=== PATIENT | male | born 1950 | race Two or more races ===

== ENCOUNTER 2022-06-03 20:10 | Inpatient (IN) | payer MEDICARE, BC ==
[~2022-06-03 20:10] MED LIST: Iopamidol 300 61% 100 ML VIAL FS ONE
[2022-06-03 21:12] LABS: #Basophils 0.1 10x3/uL (0.0-0.2); #Eosinphils 0.1 10x3/uL (0.0-0.5); #Neutrophils 17.2 10x3/uL (1.5-8.4); %Basophils 0.3 % (0.0-2.0); %Eosinophils 0.4 % (0.0-6.0); %Lymphocytes 5.1 % (18.0-47.0); %Monocytes 4.9 % (0.0-10.0); %Neutrophils 88.6 % (40.0-75.0); Hemoglobin 11.8 g/dL (13.5-17.5); Mean Corpuscular HGB CONC 31.9 g/dL (32.0-36.0); Mean Corpuscular Hemoglobin 23.9 pg (27.0-33.0); Mean Corpuscular Volume 74.9 fl (81.2-95.1); Mean Platelet Volume 11.2 fl (7.4-10.4); Platelet Count 350 10x3/uL (150-450); RBC Distribution Width 20.8 % (11.5-14.5); Red Blood Cell (RBC) Count 4.94 10x6/uL (4.32-5.72); White Blood Cell (WBC) Count 19.4 10x3/uL (3.5-10.5)
[2022-06-03 21:22] LABS: ALT (SGPT) 46 U/L (8-55); AST (SGOT) 26 U/L (5-34); Albumin 3.4 g/dL (3.4-4.8); Alkaline Phosphatase 91 U/L (40-110); Anion Gap 15 mmol/L (10-20); BUN (Urea Nitrogen) 16 mg/dL (8.4-25.7); Bilirubin, Total 0.8 mg/dL (0.2-1.2); Calc. Creatinine Clearance 0 mL/min (70-130); Calcium 8.5 mg/dL (7.8-10.44); Carbon Dioxide 22 mmol/L (23-31); Chloride 100 mmol/L (98-107); Estimated GFR 96; Globulin 2.9 g/dL (2.4-3.5); Glucose 134 mg/dL (83-110); Potassium 4.2 mmol/L (3.5-5.1); Protein, Total 6.3 g/dL (5.8-8.1); Sodium 133 mmol/L (136-145)
[2022-06-03] MEDS ORDERED: cefTRIAXone\\ROCEPHIN 2 GM VIAL ONE (21:31)
[2022-06-03] MEDS ORDERED: Ibuprofen 200 MG TAB ONE (21:53)
[2022-06-03 21:54] LABS: SARS-CoV-2 NAA Rapid Test Not Detected (NotDetected)
[2022-06-03] MEDS ORDERED: Azithromycin 500 MG VIAL ONE (22:20)
[2022-06-03 22:24] LABS: Bilirubin Neg (Negative); Blood, Urine 10 (Negative); Clarity Clear (Clear); Glucose, Urine (Dipstick) Normal (Negative); Ketone, Urine Negative (Negative); Leukocyte Negative (Negative); Nitrite Negative (Negative); Protein, Urine (Dipstick) Negative (Neg-Trace); Urobilinogen Normal mg/dL (Less than 2)
[2022-06-03 22:29] LABS: RBC/HPF 0-3 HPF (0-3); Squamous Epithelial 0-3 HPF (0-3); WBC/HPF None Seen HPF (0-3)
[2022-06-03] MEDS ORDERED: Communication Order-Pharmacy FS ONE (23:37)
[2022-06-03] MEDS ORDERED: Acetaminophen 325 MG TAB PO PRN (23:42)
[2022-06-03] MEDS ORDERED: Cefepime 2 GM VIAL ONE (23:44)
[2022-06-03] MEDS ORDERED: Lactated Ringer's 1,000 ML IV SCH (23:45)
[2022-06-04] MEDS ORDERED: VANCOMYCIN 2 GRAM/400 ML BAG 2 GM in Premix Bag 1 BAG IVPB SCH (00:30)
[2022-06-04 01:08] VITALS: BMI 26.6
[2022-06-04] MEDS: Lactated Ringer's 1,000 ML IV SCH ×4 (01:30→23:00)
[2022-06-04 04:50] LABS: #Eosinphils 0.1 10x3/uL (0.0-0.5); #Monocytes 1.2 10x3/uL (0.0-1.1); #Neutrophils 16.5 10x3/uL (1.5-8.4); %Basophils 0.2 % (0.0-2.0); %Eosinophils 0.7 % (0.0-6.0); %Lymphocytes 7.5 % (18.0-47.0); %Neutrophils 84.6 % (40.0-75.0); Hemoglobin 12.6 g/dL (13.5-17.5); Mean Corpuscular Volume 77.4 fl (81.2-95.1); Mean Platelet Volume 11.3 fl (7.4-10.4); Platelet Count 316 10x3/uL (150-450); RBC Distribution Width 21.8 % (11.5-14.5); Red Blood Cell (RBC) Count 5.26 10x6/uL (4.32-5.72); White Blood Cell (WBC) Count 19.5 10x3/uL (3.5-10.5)
[2022-06-04 04:51] LABS: Anion Gap 13 mmol/L (10-20); BUN (Urea Nitrogen) 12 mg/dL (8.4-25.7); Calc. Creatinine Clearance 104 mL/min (70-130); Calcium 8.7 mg/dL (7.8-10.44); Carbon Dioxide 22 mmol/L (23-31); Chloride 107 mmol/L (98-107); Estimated GFR 98; Glucose 132 mg/dL (83-110); Potassium 3.7 mmol/L (3.5-5.1); Sodium 138 mmol/L (136-145)
[2022-06-04] MEDS: Cefepime 2 GM in Sodium Chloride 0.9% 100 ML IVPB SCH ×3 (05:23→22:05)
[2022-06-04] MEDS: Aspirin 81 mg Enteric Coated Tablet PO SCH (08:44)
[2022-06-04] MEDS: Azithromycin 500 MG in Sodium Chloride 0.9% 250 ML 250 ML IVPB SCH (11:48)
[2022-06-04] MEDS: Vancomycin HCl 1 GM in Sodium Chloride 0.9% 250 ML 250 ML IVPB SCH (14:14)
[2022-06-05] MEDS: Vancomycin HCl 1 GM in Sodium Chloride 0.9% 250 ML 250 ML IVPB SCH (00:26)
[2022-06-05 05:20] LABS: Troponin I 0.018 ng/mL (< 0.028)
[2022-06-05] MEDS: Cefepime 2 GM in Sodium Chloride 0.9% 100 ML IVPB SCH ×3 (05:39→21:47)
[2022-06-05] MEDS: Lactated Ringer's 1,000 ML IV SCH ×2 (09:47→18:32)
[2022-06-05] MEDS: Aspirin 81 mg Enteric Coated Tablet PO SCH (09:47)
[2022-06-05] MEDS: Azithromycin 500 MG in Sodium Chloride 0.9% 250 ML 250 ML IVPB SCH (10:04)
[2022-06-05] MEDS: VANCOMYCIN 1.25 GM/250 ML BAG 1.25 GM in Premix Bag 1 BAG IVPB SCH (17:12)
[2022-06-05] MEDS ORDERED: Ondansetron ODT 4 MG TAB PO PRN (17:55)
[2022-06-05] MEDS ORDERED: Sodium Chloride 0.65% Nasal 44 ML BOT EA NARE PRN (17:55)
[2022-06-05] MEDS ORDERED: Acetaminophen 500 MG TAB PO PRN ×2 (17:55)
[2022-06-05] MEDS ORDERED: diphenhydrAMINE 25 MG CAP PO PRN (17:55)
[2022-06-05] MEDS ORDERED: Moisturizing Cream (Eucerin) 113 GM JAR TOP PRN (17:55)
[2022-06-05] MEDS ORDERED: Calcium Carbonate 500 MG ChewTAB PO PRN (17:55)
[2022-06-05] MEDS ORDERED: Ondansetron PF 4 MG/2 ML Vial IVP PRN (17:55)
[2022-06-05] MEDS ORDERED: Benzonatate 100 MG CAP PO PRN (17:55)
[2022-06-05] MEDS ORDERED: Artificial Tear Sol 15 ML BOT EA EYE PRN (17:55)
[2022-06-05] MEDS ORDERED: Acetaminophen 650 MG Suppository PR PRN (17:55)
[2022-06-05] MEDS ORDERED: Cepastat Lozenges 1 LOZ PO PRN (17:55)
[2022-06-05] MEDS ORDERED: Lactated Ringer's 1,000 ML IV SCH (18:04)
[2022-06-06] MEDS: VANCOMYCIN 1.25 GM/250 ML BAG 1.25 GM in Premix Bag 1 BAG IVPB SCH ×2 (02:33→18:15)
[2022-06-06] MEDS: Cefepime 2 GM in Sodium Chloride 0.9% 100 ML IVPB SCH ×3 (06:09→21:19)
[2022-06-06 06:33] LABS: #Eosinphils 0.3 10x3/uL (0.0-0.5); #Monocytes 1.1 10x3/uL (0.0-1.1); #Neutrophils 5.9 10x3/uL (1.5-8.4); %Basophils 0.5 % (0.0-2.0); %Eosinophils 3.1 % (0.0-6.0); %Lymphocytes 15.9 % (18.0-47.0); %Monocytes 12.1 % (0.0-10.0); %Neutrophils 68.1 % (40.0-75.0); Hemoglobin 12.1 g/dL (13.5-17.5); Mean Corpuscular HGB CONC 31.8 g/dL (32.0-36.0); Mean Corpuscular Volume 75.6 fl (81.2-95.1); Mean Platelet Volume 11.8 fl (7.4-10.4); Platelet Count 340 10x3/uL (150-450); RBC Distribution Width 20.7 % (11.5-14.5); Red Blood Cell (RBC) Count 5.04 10x6/uL (4.32-5.72); White Blood Cell (WBC) Count 8.7 10x3/uL (3.5-10.5)
[2022-06-06 06:47] LABS: ALT (SGPT) 25 U/L (8-55); AST (SGOT) 19 U/L (5-34); Albumin 3.1 g/dL (3.4-4.8); Alkaline Phosphatase 90 U/L (40-110); Anion Gap 17 mmol/L (10-20); BUN (Urea Nitrogen) 10 mg/dL (8.4-25.7); Bilirubin, Total 0.7 mg/dL (0.2-1.2); Calc. Creatinine Clearance 101 mL/min (70-130); Calcium 9.5 mg/dL (7.8-10.44); Carbon Dioxide 24 mmol/L (23-31); Chloride 104 mmol/L (98-107); Estimated GFR 97; Globulin 3.4 g/dL (2.4-3.5); Glucose 105 mg/dL (83-110); Potassium 4.5 mmol/L (3.5-5.1); Protein, Total 6.5 g/dL (5.8-8.1); Sodium 140 mmol/L (136-145)
[2022-06-06 06:55] LABS: CRP (Inflammatory) 17.42 mg/dL (= or < 0.5)
[2022-06-06] MEDS: Azithromycin 500 MG in Sodium Chloride 0.9% 250 ML 250 ML IVPB SCH (10:09)
[2022-06-06] MEDS: Aspirin 81 mg Enteric Coated Tablet PO SCH (10:10)
[2022-06-06 11:04] LABS: HIV (1/2) Antibody/Antigen Non-Reactive (NonReactive); HIV 1/2 INDEX 0.06 S/CO (<1.00)
[2022-06-06] MEDS ORDERED: Iopamidol 300 61% 100 ML VIAL FS ONE (11:04)
[2022-06-07 02:31] LABS: Vancomycin, Trough 20.4 ug/mL
[2022-06-07 02:36] LABS: #Eosinphils 0.2 10x3/uL (0.0-0.5); #Neutrophils 5.9 10x3/uL (1.5-8.4); %Basophils 0.5 % (0.0-2.0); %Lymphocytes 10.4 % (18.0-47.0); %Monocytes 12.7 % (0.0-10.0); %Neutrophils 73.2 % (40.0-75.0); Hemoglobin 11.9 g/dL (13.5-17.5); Mean Corpuscular HGB CONC 32.2 g/dL (32.0-36.0); Mean Corpuscular Hemoglobin 23.9 pg (27.0-33.0); Mean Corpuscular Volume 74.3 fl (81.2-95.1); Mean Platelet Volume 10.8 fl (7.4-10.4); Platelet Count 353 10x3/uL (150-450); RBC Distribution Width 20.6 % (11.5-14.5); Red Blood Cell (RBC) Count 4.98 10x6/uL (4.32-5.72); White Blood Cell (WBC) Count 8.1 10x3/uL (3.5-10.5)
[2022-06-07 02:53] LABS: ALT (SGPT) 22 U/L (8-55); AST (SGOT) 13 U/L (5-34); Albumin 3.1 g/dL (3.4-4.8); Alkaline Phosphatase 83 U/L (40-110); Anion Gap 14 mmol/L (10-20); BUN (Urea Nitrogen) 9 mg/dL (8.4-25.7); Bilirubin, Total 0.5 mg/dL (0.2-1.2); Calc. Creatinine Clearance 110 mL/min (70-130); Calcium 9.3 mg/dL (7.8-10.44); Carbon Dioxide 24 mmol/L (23-31); Chloride 103 mmol/L (98-107); Estimated GFR 100; Globulin 3.3 g/dL (2.4-3.5); Glucose 109 mg/dL (83-110); Potassium 3.9 mmol/L (3.5-5.1); Protein, Total 6.4 g/dL (5.8-8.1); Sodium 137 mmol/L (136-145)
[2022-06-07 03:06] LABS: HIV (1/2) Antibody/Antigen Non-Reactive (NonReactive); HIV 1/2 INDEX 0.16 S/CO (<1.00)
[2022-06-07] MEDS: VANCOMYCIN 1.25 GM/250 ML BAG 1.25 GM in Premix Bag 1 BAG IVPB SCH (03:18)
[2022-06-07] MEDS: Cefepime 2 GM in Sodium Chloride 0.9% 100 ML IVPB SCH (05:56)
[2022-06-07] MEDS: Aspirin 81 mg Enteric Coated Tablet PO SCH (09:23)
[2022-06-07 13:29] VITALS: BP 128/66; TEMP 98.6
[2022-06-11 15:14] LABS: QuantiFERON-TB Gold Plus Negative (Negative)
== END 2022-06-07 15:00 | disposition home or self-care (01) | DRG 871 ==
LOC: CSHERS 20:10 → CSHTELE 23:42
PROVIDERS: ADMIT Family Medicine; ATTEND Family Medicine
DX: A41.9 Sepsis, unspecified organism (principal); E43 Unspecified severe protein-calorie malnutrition; E11.9 Type 2 diabetes mellitus without complications; I10 Essential (primary) hypertension; N40.0 Benign prostatic hyperplasia without lower urinary tract symptoms; E78.5 Hyperlipidemia, unspecified; J45.909 Unspecified asthma, uncomplicated; F17.210 Nicotine dependence, cigarettes, uncomplicated; R07.9 Chest pain, unspecified; C32.0 Malignant neoplasm of glottis; Z20.822 Contact with and (suspected) exposure to COVID-19; R10.9 Unspecified abdominal pain; R53.1 Weakness; R59.0 Localized enlarged lymph nodes; Z83.3 Family history of diabetes mellitus; Z98.890 Other specified postprocedural states; Z83.79 Family history of other diseases of the digestive system; Z68.26 Body mass index [BMI] 26.0-26.9, adult
CPT/HCPCS: 36415; 36416; 71045; 71260; 74177; 76705; 80048; 80053; 80202; 81003; 81015; 83605; 83735; 83880; 84145; 84484; 85025; 85652; 86140; 86480; 87040; 87385; 87389; 87449; 93005; 96361; 96365; 96367; J0456; J0692; J0696; J1650; J3370; J3490; J7050; J7120; Q9967

== ENCOUNTER 2023-02-20 16:03 | Emergency (ER) | payer MEDICARE, BC ==
[2023-02-20 17:08] LABS: ALT (SGPT) 65 U/L (8-55); AST (SGOT) 20 U/L (5-34); Albumin 3.8 g/dL (3.4-4.8); Alkaline Phosphatase 228 U/L (40-110); Anion Gap 16 mmol/L (10-20); BUN (Urea Nitrogen) 18 mg/dL (8.4-25.7); Bilirubin, Total 0.4 mg/dL (0.2-1.2); Calc. Creatinine Clearance 0 mL/min (70-130); Calcium 9.5 mg/dL (7.8-10.44); Carbon Dioxide 28 mmol/L (23-31); Chloride 100 mmol/L (98-107); Estimated GFR 95; Globulin 3.8 g/dL (2.4-3.5); Glucose 193 mg/dL (83-110); Lipase 12 U/L (8-78); Magnesium 2.2 mg/dL (1.6-2.6); Potassium 4.2 mmol/L (3.5-5.1); Protein, Total 7.6 g/dL (5.8-8.1); Sodium 140 mmol/L (136-145)
[2023-02-20] MEDS ORDERED: Ondansetron PF 4 MG/2 ML Vial ONE (17:09)
[2023-02-20 17:11] LABS: Bilirubin Neg (Negative); Blood, Urine 10 (Negative); Clarity Clear (Clear); Glucose, Urine (Dipstick) Normal (Negative); Ketone, Urine Negative (Negative); Leukocyte Negative (Negative); Nitrite Negative (Negative); Protein, Urine (Dipstick) 30 mg/dl (Neg-Trace); Urobilinogen Normal mg/dL (Less than 2); pH, Urine 6.5 (5.0-9.0)
[2023-02-20 17:14] LABS: Troponin I 0.038 ng/mL (< 0.028)
[2023-02-20 17:27] LABS: #Basophils 0.1 10x3/uL (0.0-0.2); #Eosinphils 0.1 10x3/uL (0.0-0.5); #Monocytes 0.6 10x3/uL (0.0-1.1); #Neutrophils 8.9 10x3/uL (1.5-8.4); %Basophils 0.5 % (0.0-2.0); %Eosinophils 0.6 % (0.0-6.0); %Lymphocytes 12.4 % (18.0-47.0); %Monocytes 5.7 % (0.0-10.0); %Neutrophils 80.3 % (40.0-75.0); Hematocrit 41.7 % (38.8-50.0); Hemoglobin 13.3 g/dL (13.5-17.5); Mean Corpuscular HGB CONC 31.9 g/dL (32.0-36.0); Mean Corpuscular Hemoglobin 25.9 pg (27.0-33.0); Mean Corpuscular Volume 81.1 fl (81.2-95.1); Mean Platelet Volume 10.6 fl (7.4-10.4); Platelet Count 553 10x3/uL (150-450); RBC Distribution Width 16.5 % (11.5-14.5); Red Blood Cell (RBC) Count 5.14 10x6/uL (4.32-5.72); White Blood Cell (WBC) Count 11.1 10x3/uL (3.5-10.5)
[2023-02-20 17:29] LABS: CAUTI Indications for Culture Dysuria,urgency,freq; RBC/HPF 0-3 HPF (0-3); Squamous Epithelial 0-3 HPF (0-3); WBC/HPF 0-3 HPF (0-3)
[2023-02-20 17:30] LABS: Bacteria/HPF 1+ HPF (None Seen); Mucous/LPF 2+ LPF (<2+); Urine Culture Reflex No No
[2023-02-20 17:44] LABS: SARS-CoV-2 NAA Rapid Test Not Detected (NotDetected)
== END 2023-02-20 19:05 | disposition home or self-care (01) ==
LOC: CSHERS 16:03
DX: R11.10 Vomiting, unspecified (principal); M79.10 Myalgia, unspecified site; I25.10 Atherosclerotic heart disease of native coronary artery without angina pectoris; I10 Essential (primary) hypertension; E11.9 Type 2 diabetes mellitus without complications; Z20.822 Contact with and (suspected) exposure to COVID-19
CPT/HCPCS: 0240U; 71045; 80053; 81001; 83690; 83735; 84484 ×2; 85025; 93005; 36415; 93010; J2405

== ENCOUNTER 2023-02-22 16:47 | Emergency (ER) | payer MEDICARE, BC ==
[2023-02-22] MEDS ORDERED: Acetaminophen 500 MG TAB ONE (19:06)
[2023-02-22] MEDS ORDERED: traMADol HCl 50 MG TAB ONE (19:06)
== END 2023-02-22 21:00 | disposition home or self-care (01) ==
LOC: CSHERS 16:47
DX: S32.020A Wedge compression fracture of second lumbar vertebra, initial encounter for closed fracture (principal); I10 Essential (primary) hypertension; E11.9 Type 2 diabetes mellitus without complications; W18.30XA Fall on same level, unspecified, initial encounter; Y92.009 Unspecified place in unspecified non-institutional (private) residence as the place of occurrence of the external cause
CPT/HCPCS: 70450; 72131

== ENCOUNTER 2023-04-16 12:27 | Outpatient (CLI) | payer MEDICARE, BC | END 2023-04-16 12:28 | disposition home or self-care (01) | LOC: CSHRAD 12:27 | PROVIDERS: ATTEND Nurse Practitioner Family | DX: I48.0 Paroxysmal atrial fibrillation (principal) | CPT/HCPCS: 71046 ==